=== PATIENT | female | born 1970 | race Caucasian/White ===

== ENCOUNTER 2018-03-27 09:48 | Emergency (ER) | payer OTHER ==
[~2018-03-27] VITALS: Ht 162.6 cm; Wt 90.7 kg
--- NOTE | ~2018-03-27 | EKG ---
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
[2018-03-27 10:08] LABS: URINE BILIRUBIN NEGATIVE (Negative); URINE BLOOD TRACE (Negative); URINE CLARITY CLEAR; URINE COLOR YELLOW; URINE GLUCOSE-RANDOM* NEGATIVE (Negative); URINE KETONES NEGATIVE (Negative); URINE LEUKOCYTES-REFLEX NEGATIVE (Negative); URINE NITRITE-REFLEX NEGATIVE (Negative); URINE PROTEIN (DIPSTICK) NEGATIVE (Negative); URINE SPECIFIC GRAVITY >= 1.030 (1.005-1.035); URINE UROBILINOGEN 0.2 E.U./dl (0.2-1.0)
[2018-03-27 10:29] LABS: BASOPHILS 0.7 % (0.0-2.0); HEMATOCRIT 39.6 % (37.0-47.0); HEMOGLOBIN 13.3 gm/dL (12.0-15.0); LYMPHOCYTES 19.8 % (24.0-44.0); MCH 26.8 pg (26.0-34.0); MCHC 33.6 g/dL (28.0-37.0); MCV 79.8 fL (80.0-100.0); MONOCYTES 6.8 % (1.0-8.0); PLATELET COUNT 229 thou/uL (150-400); POLYS 70.7 % (36.0-66.0); RBC 4.97 mil/uL (4.20-5.00); RDW 14.2 % (10.5-14.5); WBC 7.1 thou/uL (4.0-11.0)
[2018-03-27 10:39] LABS: ANION GAP 8 mmol/L (7-16); BUN 11 mg/dL (7-18); CALCIUM 9.4 mg/dL (8.5-10.1); CHLORIDE 104 mmol/L (98-107); CO2 26 mmol/L (21-32); CREATININE 0.6 mg/dL (0.6-1.0); GLUCOSE 141 mg/dL (74-106); POTASSIUM 4.5 mmol/L (3.5-5.1); SODIUM 138 mmol/L (136-145)
[2018-03-27 10:44] LABS: ALBUMIN 3.6 g/dL (3.4-5.0); DIRECT BILIRUBIN < 0.1 mg/dL (<0.1-0.3); LIPASE 173 U/L (73-393); SGOT 27 U/L (15-37); SGPT 32 U/L (30-65); TOTAL PROTEIN 7.8 g/dL (6.4-8.2)
[2018-03-27 10:45] LABS: TOTAL BILIRUBIN 0.4 mg/dL (<0.1-1.0)
[2018-03-27] MEDS ORDERED: BENTYL 20 MG TA20 M1 PO (11:51)
[2018-03-27] MEDS ORDERED: PEPCID20 MG PO (12:04)
[2018-03-27 12:20] VITALS: BP 144/63
== END 2018-03-27 12:22 | disposition home or self-care (01) ==
LOC: ER 09:48
PROVIDERS: Physician Assistant
DX: K29.70 Gastritis, unspecified, without bleeding (principal)